=== PATIENT | male | born 1975 | race Asian ===

== ENCOUNTER 2017-09-17 04:27 | Emergency (ER) | payer OTHER ==
[~2017-09-17] VITALS: Ht 165.1 cm; Wt 78.0 kg
--- NOTE | 2017-09-17 04:48 | ED NECK/BACK PAIN COMPLAINT ---
History of Present Illness General Chief Complaint: Neck/Upper Back Pain/Injury Stated Complaint: NECK SPASM Source: patient Exam Limitations: no limitations Vital Signs & Intake/Output Vital Signs & Intake/Output Vital Signs Date Time Temp Pulse Resp B/P B/P Pulse O2 O2 Flow FiO2 Mean Ox Delivery Rate 09/17 0453 98 Room Air 09/17 0452 96.0 68 18 146/92 100 Room Air Allergies Coded Allergies: Penicillins (Mild, UNKNOWN 09/17/17) Reconcile Medications Cyclobenzaprine HCl 10 MG TABLET 1 TAB PO TID PRN muscle spasm Naproxen (Naprosyn) 500 MG TABLET 1 TAB PO BID muscle pain Oxycodone HCl/Acetaminophen (Percocet 5-325 MG Tablet) 5 MG-325 MG TABLET 1 TAB PO 4XDP PRN PAIN six...[id number] Triage Nurses Notes Reviewed? yes Onset: Abrupt Duration: day(s): Timing: recent history Location: right cervical spine Radiation: none Context: "I went to the gym" Method of Injury: twisted Loss of Consciousness: no loss of consciousness Modifying Factors: movement, rest Associated Symptoms: muscle spasm HPI: 42 yo gentleman presents right right sided neck pain for the past 5 days, which began after working out at the gym. He notes no weakness, numbness, bony pain, headache. He was seen at an urgent care center, and given flexeril and naprosyn. He has been taking these medicines with moderate effect. Past History Travel History Traveled to [place] past 21 day No Medical History Any Pertinent Medical History? see below for history Surgical History Surgical History: none Psychosocial History What is your primary language Upper Sorbian Family History Hx Contributory? No Review of Systems Review of Systems Constitutional: Reports: no symptoms. Eyes: Reports: no symptoms. Ears, Nose, Throat, Mouth: Reports: no symptoms. Respiratory: Reports: no symptoms. Cardiovascular: Reports: no symptoms. Gastrointestinal/Abdominal: Reports: no symptoms. Musculoskeletal: Reports: no symptoms. Skin: Reports: no symptoms. Neurological/Psychological: Reports: no symptoms. All Other Systems: Reviewed and Negative Physical Exam Physical Exam General Appearance: well developed/nourished, mild distress Head: atraumatic Eyes: Bilateral: PERRL, EOMI. Ears, Nose, Throat, Mouth: hearing grossly normal Neck: right sided muscle spasm to palpation. no focal bony tenderness. Respiratory: normal breath sounds Cardiovascular: regular rate/rhythm Gastrointestinal: soft, non-tender Back: normal inspection Extremities: normal range of motion Neurologic/Psych: awake, alert, oriented x 3, normal mood/affect Skin: intact, normal color, warm/dry Comments: strength, light touch, dtr's are intact bilaterally. Core Measures CVA/TIA Diagnosis: No Progress Differential Diagnosis: muscle spasm. vs other. Plan of Care: Current Medications Sig/Jorge Start time Last Medication Dose Stop Time Status Admin Oxycodone/ 1 TAB ONCE ONE 09/17 0500 UNVr Acetaminophen 09/17 0501 (Percocet) Departure Departure Disposition: HOME OR SELF CARE Condition: Stable Clinical Impression Primary Impression: Muscle spasm Referrals: Patient Has No Primary Care Dr (PCP/Family) Departure Forms: Customer Survey General Discharge Information Prescriptions: Current Visit Scripts Oxycodone HCl/Acetaminophen (Percocet 5-325 MG Tablet) 1 TAB PO 4XDP PRN PAIN #6 TAB six...[id number] Cyclobenzaprine HCl 1 TAB PO TID PRN muscle spasm #30 TAB Naproxen (Naprosyn) 1 TAB PO BID #60 TAB
[2017-09-17] MEDS ORDERED: PERCOCET 5-3251 EACH PO (04:51)
[2017-09-17] MEDS ORDERED: CYCLOBENZAPRINE10 M1 PO (04:51)
[2017-09-17] MEDS ORDERED: NAPROSYN500 M1 PO (04:51)
[2017-09-17 04:52] VITALS: BP 146/92
== END 2017-09-17 05:00 ==
LOC: ERH
DX: M62.838 Other muscle spasm (principal)